=== PATIENT | male | born 1965 | race Caucasian/White ===

== ENCOUNTER 2017-07-28 11:01 | Emergency (ER) | payer BC ==
[2017-07-28] MEDS ORDERED: OXYCODONE-ACETAMINOPHEN 5-325 MG TABLET PO ONE (12:27)
--- NOTE | 2017-07-28 12:33 | RADIOLOGY REPORT (SQ) ---
EXAM DESCRIPTION: SHOULDER RIGHT 2 OR MORE VIEWS COMPLETED DATE/TIME: 07/28/2017 12:19 pm REASON FOR STUDY: injury COMPARISON: None. NUMBER OF VIEWS: Three views right shoulder. LIMITATIONS: None. FINDINGS: Nondisplaced fracture through the lateral humeral head. Potential extension into the kinsey carline neck. No dislocation or separation evident. Degenerative AC joint changes. No pneumothorax or displaced rib fracture. OTHER: No other significant finding. IMPRESSION: Nondisplaced proximal humerus fracture. TECHNICAL DOCUMENTATION: JOB ID: [id number] Reading location - IP/workstation name: [email or web address]
--- NOTE | 2017-07-28 12:56 | ER Document Report ---
ED General - General Chief Complaint: Shoulder Injury Stated Complaint: FALL/RIGHT SHOULDER PAIN Time Seen by Provider: 07/28/17 11:19 Mode of Arrival: Ambulatory Information source: Patient Notes: 51-year-old male chronic alcoholic presents after mechanical fall while intoxicated last night. Patient notes it has been difficult to move his shoulder, he does know to previous clavicular injuries. Patient denies any numbness or weakness, denies any other injuries TRAVEL OUTSIDE OF THE [place] IN LAST 30 DAYS: No - HPI Onset: Yesterday Onset/Duration: Sudden Quality of pain: Sharp Severity: Moderate Pain Level: 2 Associated symptoms: Body/muscle aches Exacerbated by: Movement Relieved by: Denies Similar symptoms previously: No Recently seen / treated by doctor: No - Related Data Allergies/Adverse Reactions: No Known Allergies Allergy (Verified 07/28/17 11:03) Past Medical History - Social History Smoking Status: Current Every Day Smoker Cigarette use (# per day): Yes Chew tobacco use (# tins/day): No Smoking Education Provided: No Frequency of alcohol use: Heavy Drug Abuse: Marijuana Family History: Reviewed & Not Pertinent Patient has suicidal ideation: No Patient has homicidal ideation: No - Past Medical History Cardiac Medical History: Reports: Hx Hypertension Pulmonary Medical History: Reports: Hx COPD Renal/ Medical History: Denies: Hx Peritoneal Dialysis Past Surgical History: Reports: Hx Orthopedic Surgery - r clavicle x2, left clavicle x1 Review of Systems - Review of Systems Notes: REVIEW OF SYSTEMS: CONSTITUTIONAL : Denies fever, chills, or sweats. Denies recent illness. EENT: Denies eye, ear, throat, or mouth pain or symptoms. Denies nasal or sinus congestion or discharge. Denies throat, tongue, or mouth swelling or difficulty swallowing. CARDIOVASCULAR: Denies chest pain. Denies palpitations or racing or irregular heart beat. Denies ankle edema. RESPIRATORY: Denies cough, cold, or chest congestion. Denies shortness of breath, difficulty breathing, or wheezing. GASTROINTESTINAL: Denies abdominal pain or distention. Denies nausea, vomiting , or diarrhea. Denies blood in vomitus, stools, or per rectum. Denies black, tarry stools. Denies constipation. GENITOURINARY: Denies difficulty urinating, painful urination, burning, frequency, blood in urine, or discharge. MUSCULOSKELETAL: Right shoulder pain SKIN: Denies rash, lesions or sores. HEMATOLOGIC : Denies easy bruising or bleeding. LYMPHATIC: Denies swollen, enlarged glands. NEUROLOGICAL: Denies confusion or altered mental status. Denies passing out or loss of consciousness. Denies dizziness or lightheadedness. Denies headache. Denies weakness or paralysis or loss of use of either side. Denies problems with gait or speech. Denies sensory loss, numbness, or tingling. Denies seizures. PSYCHIATRIC: Denies anxiety or stress. Denies depression, suicidal ideation, or homicidal ideation. ALL OTHER SYSTEMS REVIEWED AND NEGATIVE. Dictation was performed using [employer] voice recognition software PHYSICAL EXAMINATION: GENERAL: Well-appearing, well-nourished and in no acute distress. HEAD: Atraumatic, normocephalic. EYES: Pupils equal round and reactive to light, extraocular movements intact, sclera anicteric, conjunctiva are normal. ENT: Nares patent, oropharynx clear without exudates. Moist mucous membranes. NECK: Normal range of motion, supple without lymphadenopathy LUNGS: Breath sounds clear to auscultation bilaterally and equal. No wheezes rales or rhonchi. HEART: Regular rate and rhythm without murmurs ABDOMEN: Soft, nontender, nondistended abdomen. No guarding, no rebound. No masses appreciated. Musculoskeletal: Tenderness with range of motion of the right shoulder, he is in a makeshift sling currently NEUROLOGICAL: Cranial nerves grossly intact. Normal speech, normal gait. Normal sensory, motor exams PSYCH: Normal mood, normal affect. SKIN: Warm, Dry, normal turgor, no rashes or lesions noted. Physical Exam - Vital signs Vitals: Temp Pulse Resp BP Pulse Ox 98.0 F 99 22 H 141/82 H 93 07/28/17 11:06 07/28/17 11:06 07/28/17 11:06 07/28/17 11:06 07/28/17 11:06 Course - Re-evaluation Re-evalutation: 07/28/17 13:08 Patient noted to have proximal humeral fracture, he was given pain control shoulder immobilizer was ordered. This was placed by tech with no difficulty. Patient will be given follow-up with orthopedics, upon discharge notes he has a history of COPD and is running out of his inhaler I will refill this as well 06/10/18 15:59 After performing a Medical Screening Examination, I estimate there is LOW risk for INTRACRANIAL HEMORRHAGE, UNSTABLE SPINE FRACTURE, CENTRAL CORD SYNDROME, CAUDA EQUINA, THORACIC AORTIC DISSECTION, PNEUMOTHORAX, PERFORATED BOWEL, RUPTURED ABDOMINAL AORTIC ANEURYSM, ACUTE TENDON RUPTURE, COMPARTMENT SYNDROME, or OPEN FRACTURE, thus I consider the discharge disposition reasonable. Also, there is no evidence or peritonitis, sepsis, or toxicity. I have reevaluated this patient multiple times and no significant life threatening changes are noted. The patient and I have discussed the diagnosis and risks, and we agree with discharging home to follow-up with their primary doctor with the understanding that symptoms and presentations can change. We also discussed returning to the Emergency Department immediately if new or worsening symptoms occur. We have discussed the symptoms which are most concerning (e.g., bloody stool, fever, changing or worsening pain, vomiting) that necessitate immediate return. - Vital Signs Vital signs: Temp Pulse Resp BP Pulse Ox 98.2 F 85 20 147/89 H 94 07/28/17 13:15 07/28/17 13:15 07/28/17 13:15 07/28/17 13:15 07/28/17 13:15 - Diagnostic Test Radiology reviewed: Image reviewed - X-rays right shoulder 3 view consistent with a proximal humeral fracture, Reports reviewed Discharge - Discharge Clinical Impression: Humeral fracture Qualifiers: Encounter type: initial encounter Humerus Location: proximal Fracture morphology: other fracture Fracture alignment: nondisplaced Laterality: right Qualified Code(s): S42.294A - Other nondisplaced fracture of upper end of right humerus, initial encounter for closed fracture Condition: Stable Disposition: HOME, SELF-CARE Instructions: Fracture Proximal Humerus, Sling as Treatment ([facility]) Additional Instructions: Please allow for light duty or a position where he would not be required to use his right upper extremity for 6-8 weeks Prescriptions: Albuterol Sulfate [Proair HFA Inhalation Aerosol 8.5 gm MDI] 2 puff IH Q4H PRN # 1 mdi PRN Reason: Oxycodone HCl/Acetaminophen [Percocet 5-325 mg Tablet] 1 - 2 tab PO Q4H PRN #25 tablet PRN Reason: Referrals: CARLOS PRIETO DO [ACTIVE STAFF] - Follow up tomorrow
[2017-07-28 13:22] VITALS: BP 147/89
== END 2017-07-28 13:18 | disposition home or self-care (01) ==
LOC: ER 11:01
DX: S42.201A Unspecified fracture of upper end of right humerus, initial encounter for closed fracture (principal); M25.511 Pain in right shoulder; W19.XXXA Unspecified fall, initial encounter; F10.20 Alcohol dependence, uncomplicated; F17.210 Nicotine dependence, cigarettes, uncomplicated; I10 Essential (primary) hypertension; J44.9 Chronic obstructive pulmonary disease, unspecified
CPT/HCPCS: 99283; 73030; L3650; L3908

== ENCOUNTER 2018-02-12 04:23 | Inpatient (IN) | payer BC ==
[2018-02-12] MEDS ORDERED: MAGNESIUM SULFATE/D5W 1 GM/100 ML RTUPB IV ONE (04:44)
[2018-02-12 04:45] LABS: ABSOLUTE BASOPHILS # (AUTO) 0.1 10^3/uL (0.0-0.2); ABSOLUTE LYMPHOCYTES (AUTO) 1.4 10^3/uL (0.5-4.7); ABSOLUTE MONOCYTES (AUTO) 2.6 10^3/uL (0.1-1.4); ABSOLUTE NEUT (AUTO) 11.6 10^3/uL (1.7-8.2); BASOPHILS % (AUTO) 0.4 % (0-2); HEMATOCRIT 41.5 % (37.9-51.0); HEMOGLOBIN 14.6 g/dL (13.5-17.0); LYMPHOCYTES % (AUTO) 8.8 % (13-45); MEAN CORPUSCULAR HEMOGLOBIN 32.6 pg (27.0-33.4); MEAN CORPUSCULAR HGB CONC 35.1 g/dL (32.0-36.0); MEAN CORPUSCULAR VOLUME 93 fl (80-97); MONOCYTES % (AUTO) 16.5 % (3-13); PLATELET COUNT 193 10^3/uL (150-450); RED BLOOD COUNT 4.47 10^6/uL (4.35-5.55); RED CELL DISTRIBUTION WIDTH 12.7 % (11.5-14.0); SEGMENTED NEUTROPHILS % (AUTO) 74.3 % (42-78); TOTAL CELLS COUNTED % (AUTO) 100 %; WHITE BLOOD COUNT 15.6 10^3/uL (4.0-10.5)
[2018-02-12] MEDS ORDERED: IPRATROPIUM/ALBUTEROL 0.5-2.5 MG/3 ML AMPUL NEB ONE (04:45)
[2018-02-12] MEDS ORDERED: BUDESONIDE NEB 0.5 MG/2 ML AMPUL NEB ONE (04:45)
[2018-02-12 04:59] LABS: ALANINE AMINOTRANSFERASE 40 U/L (21-72); ALBUMIN 4.3 g/dL (3.5-5.0); ALKALINE PHOSPHATASE 95 U/L (38-126); ANION GAP 15 (5-19); ASPARTATE AMINO TRANSFERASE 56 U/L (17-59); BILIRUBIN,DIRECT 0.4 mg/dL (0.0-0.4); BILIRUBIN,TOTAL 0.7 mg/dL (0.2-1.3); BLOOD UREA NITROGEN 8 mg/dL (7-20); CALCIUM 9.4 mg/dL (8.4-10.2); CARBON DIOXIDE 24 mmol/L (22-30); CHLORIDE 88 mmol/L (98-107); GLUCOSE 114 mg/dL (75-110); POTASSIUM 4.3 mmol/L (3.6-5.0); SODIUM 126.6 mmol/L (137-145); TOTAL PROTEIN 7.7 g/dL (6.3-8.2)
[2018-02-12] MEDS ORDERED: AZITHROMYCIN INJ 500 MG VIAL IV ONE (05:06)
[2018-02-12] MEDS ORDERED: CEFTRIAXONE INJ 1000 MG VIAL IV ONE (05:06)
[2018-02-12 05:08] LABS: NT PRO BNP 35 pg/mL (5-900)
--- NOTE | 2018-02-12 05:10 | RADIOLOGY REPORT (SQ) ---
EXAM DESCRIPTION: XR CHEST 1 VIEW COMPLETED DATE/TME: 02/12/2018 04:30 CLINICAL HISTORY: 52 years, Male, hypoxia, short of breath COMPARISON: None. NUMBER OF VIEWS: 1 TECHNIQUE: Portable chest LIMITATIONS: None. FINDINGS: The heart size is normal. Osteopenia. Underlying COPD. No pneumothorax. Subsegmental atelectasis/scarring in the lung bases bilaterally. IMPRESSION: COPD. No acute cardiopulmonary process copyright 2010 [employer] All Rights Reserved
[2018-02-12 05:13] LABS: TROPONIN I < 0.012 ng/mL
[2018-02-12 05:41] LABS: ARTERIAL BLOOD BASE EXCESS -1.1 mmol/L; ARTERIAL BLOOD FIO2 36; ARTERIAL BLOOD H2CO3 1.17 mmol/L (1.05-1.35); ARTERIAL BLOOD HCO3 23.5 mmol/L (20-24); ARTERIAL BLOOD O2 SATURATION 81.2 % (94-98); ARTERIAL BLOOD PO2 45.2 mmHg (80-100); ARTERIAL BLOOD TOTAL CO2 24.7 mmol/L (23-27)
--- NOTE | 2018-02-12 05:55 | ER Document Report ---
ED General - General TRAVEL OUTSIDE OF THE [place] IN LAST 30 DAYS: No <JACKIE ODDD - Last Filed: 02/12/18 07:11> <RON,JAQUELINADELFO - Last Filed: 02/12/18 07:58> - General Chief Complaint: Shortness Of Breath Stated Complaint: DIFFICULTY BREATHING Time Seen by Provider: 02/12/18 04:30 Notes: Patient is a 52-year-old male with COPD that presents to the emergency department for chief complaint of difficulty breathing. Patient states of the last 4 days has had progressively worsening shortness of breath and cough, he does have COPD, has been using his Spiriva inhaler and albuterol inhaler without improvement of his symptoms so he decided to call EMS to bring him to the emerge ncy department. He denies any any fevers, chills, chest pain, associated with this shortness of breath. He states his cough has been productive, with a white sputum. He denies any nausea, vomiting, abdominal pain, dysuria or hematuria. He does not wear oxygen at home, and is not recently on steroids. Past Medical History: COPD, hypertension Past Surgical History: Eye surgery Social History: Admits to smoking cigarettes daily, and admits to daily alcohol use, denies illicit drug use. Family History: Reviewed and noncontributory for presenting illness Allergies: Reviewed, see documented allergy list. REVIEW OF SYSTEMS: Other than noted above, the 12 point review of systems was reviewed with the patient and were negative, all pertinent findings are included in the HPI. PHYSICAL EXAMINATION: Vital signs reviewed, nursing noted reviewed. GENERAL: Patient in severe respiratory distress, tripoding, increased work of breathing, using accessory muscles HEAD: Atraumatic, normocephalic. EYES: Eyes appear normal, extraocular movements intact, sclera anicteric, conjunctiva are normal. ENT: nares patent, oropharynx clear without exudates. Moist mucous membranes. NECK: Normal range of motion, supple without lymphadenopathy LUNGS: Patient in acute respiratory distress, coarse lung sounds, rhonchi and wheezing noted throughout all lung canas HEART: Tachycardic, regular rhythm ABDOMEN: Soft, nontender, normoactive bowel sounds. No rebound, guarding, or rigidity. No masses appreciated. EXTREMITIES: Nontender, good range of motion, no pitting or edema. NEUROLOGICAL: No focal neurological deficits. Moves all extremities spontaneously Motor and sensory grossly intact on exam. PSYCH: Patient is anxious, appears distressed SKIN: Warm, Dry, normal turgor, no rashes or lesions noted on exposed skin (JACKIE DODD) - Related Data Allergies/Adverse Reactions: No Known Allergies Allergy (Verified 07/28/17 11:03) Past Medical History - Social History Smoking Status: Current Every Day Smoker Family History: Reviewed & Not Pertinent - Past Medical History Cardiac Medical History: Reports: Hx Hypertension Pulmonary Medical History: Reports: Hx COPD Renal/ Medical History: Denies: Hx Peritoneal Dialysis Past Surgical History: Reports: Hx Orthopedic Surgery - r clavicle x2, left clavicle x1 <JACKIE DODD - Last Filed: 02/12/18 07:11> - Vital signs Vitals: Pulse Ox 99 02/12/18 04:30 Course - Laboratory Result Diagrams: 02/12/18 04:31 02/12/18 04:31 <JACKIE DODD - Last Filed: 02/12/18 07:11> - Laboratory Result Diagrams: 02/12/18 04:31 02/12/18 04:31 - Diagnostic Test Radiology reviewed: Reports reviewed <FAUSTINO VELASQUEZ - Last Filed: 02/12/18 07:58> - Re-evaluation Re-evalutation: Patient seen and examined vital signs reviewed. Laboratory data and imaging were ordered as appropriate for the patient's presenting symptoms and complaint, with consideration of any critical or life threatening conditions that may be associated with their obtained history and exam as noted above. Patient was treated with IV Solu-Medrol by EMS, and given 2 DuoNeb breathing treatments, this was followed up with budesonide breathing treatment, IV magnesium, and additional DuoNeb breathing treatment, I did attempt to place the patient on BiPAP, however he refused stating that he is claustrophobic, patient was maintained on nasal cannula, ABG was obtained, did demonstrate severe hypoxemia, in the 40s, and I could not convince the patient to be on BiPAP. Will maintain on oxygen. Results were reviewed when available and demonstrated severe hypoxemia on ABG, leukocytosis, likely acute phase stress reaction, chest x-ray is negative for focal infiltrate, he does have hyponatremia as well, suspect this is secondary to the patient's chronic alcohol use. The patient was re-evaluated and was improved after treatments, still having some increased work of breathing, I do feel that this patient should be admitted to the hospital, for aggressive pulmonary toilet, and IV steroids, to improve his acute exacerbation of COPD with hypoxemia, and acute on chronic respiratory failure. Results were discussed with the patient at this point after careful consideration I feel that that patient should be admitted to the hospital. This was discussed with the patient that it is in the best interest for their care to be admitted for further evaluation and management. Patient agreed with this plan of care. A call was placed to the admitted physician, Dr. Tolliver who graciously accepted the patient onto their service. *Note is created using voice recognition software and may contain spelling, syntax or grammatical errors. Laboratory 02/12/18 02/12/18 02/12/18 04:31 04:31 04:31 WBC 15.6 H RBC 4.47 Hgb 14.6 Hct 41.5 MCV 93 MCH 32.6 MCHC 35.1 RDW 12.7 Plt Count 193 Seg Neutrophils % 74.3 Lymphocytes % 8.8 L Monocytes % 16.5 H Eosinophils % 0.0 Basophils % 0.4 Absolute Neutrophils 11.6 H Absolute Lymphocytes 1.4 Absolute Monocytes 2.6 H Absolute Eosinophils 0.0 Absolute Basophils 0.1 Carbonic Acid HCO3/H2CO3 Ratio ABG pH ABG pCO2 ABG pO2 ABG HCO3 ABG Total CO2 ABG O2 Saturation ABG Base Excess FiO2 Sodium 126.6 L Potassium 4.3 Chloride 88 L Carbon Dioxide 24 Anion Gap 15 BUN 8 Creatinine 0.64 Est GFR ( Amer) > 60 Est GFR (Non-Af Amer) > 60 Glucose 114 H Calcium 9.4 Total Bilirubin 0.7 Direct Bilirubin 0.4 Neonat Total Bilirubin Not Reportable Neonat Direct Bilirubin Not Reportable Neonat Indirect Bili Not Reportable AST 56 ALT 40 Alkaline Phosphatase 95 Troponin I < 0.012 NT-Pro-B Natriuret Pep 35 Total Protein 7.7 Albumin 4.3 02/12/18 05:10 WBC RBC Hgb Hct MCV MCH MCHC RDW Plt Count Seg Neutrophils % Lymphocytes % Monocytes % Eosinophils % Basophils % Absolute Neutrophils Absolute Lymphocytes Absolute Monocytes Absolute Eosinophils Absolute Basophils Carbonic Acid 1.17 HCO3/H2CO3 Ratio 20:1 ABG pH 7.40 ABG pCO2 39.0 ABG pO2 45.2 L ABG HCO3 23.5 ABG Total CO2 24.7 ABG O2 Saturation 81.2 L ABG Base Excess -1.1 FiO2 36 Sodium Potassium Chloride Carbon Dioxide Anion Gap BUN Creatinine Est GFR ( Amer) Est GFR (Non-Af Amer) Glucose Calcium Total Bilirubin Direct Bilirubin Neonat Total Bilirubin Neonat Direct Bilirubin Neonat Indirect Bili AST ALT Alkaline Phosphatase Troponin I NT-Pro-B Natriuret Pep Total Protein Albumin Chest X-Ray 02/12/18 04:30 IMPRESSION: COPD. No acute cardiopulmonary process copyright 2011 [employer]- All Rights Reserved (JACKIE DODD Clarisse) 02/12/18 07:[address] Michael regarding patient presentation, agrees to accept patient as an IMCU admission (FAUSTINO VELASQUEZ) - Vital Signs Vital signs: Temp Pulse Resp BP Pulse Ox 99.6 F 31 H 174/93 H 94 02/12/18 04:36 02/12/18 07:01 02/12/18 07:01 02/12/18 07:01 - Laboratory Laboratory results interpreted by me: 02/12/18 02/12/18 02/12/18 04:31 04:31 05:10 WBC 15.6 H Lymphocytes % 8.8 L Monocytes % 16.5 H Absolute Neutrophils 11.6 H Absolute Monocytes 2.6 H ABG pO2 45.2 L ABG O2 Saturation 81.2 L Sodium 126.6 L Chloride 88 L Glucose 114 H 02/12/18 07:58 Labs- Entire Visit 02/12/18 02/12/18 02/12/18 04:31 04:31 04:31 WBC 15.6 H RBC 4.47 Hgb 14.6 Hct 41.5 MCV 93 MCH 32.6 MCHC 35.1 RDW 12.7 Plt Count 193 Seg Neutrophils % 74.3 Lymphocytes % 8.8 L Monocytes % 16.5 H Eosinophils % 0.0 Basophils % 0.4 Absolute Neutrophils 11.6 H Absolute Lymphocytes 1.4 Absolute Monocytes 2.6 H Absolute Eosinophils 0.0 Absolute Basophils 0.1 Carbonic Acid HCO3/H2CO3 Ratio ABG pH ABG pCO2 ABG pO2 ABG HCO3 ABG Total CO2 ABG O2 Saturation ABG Base Excess FiO2 Sodium 126.6 L Potassium 4.3 Chloride 88 L Carbon Dioxide 24 Anion Gap 15 BUN 8 Creatinine 0.64 Est GFR ( Amer) > 60 Est GFR (Non-Af Amer) > 60 Glucose 114 H Calcium 9.4 Total Bilirubin 0.7 Direct Bilirubin 0.4 Neonat Total Bilirubin Not Reportable Neonat Direct Bilirubin Not Reportable Neonat Indirect Bili Not Reportable AST 56 ALT 40 Alkaline Phosphatase 95 Troponin I < 0.012 NT-Pro-B Natriuret Pep 35 Total Protein 7.7 Albumin 4.3 02/12/18 05:10 WBC RBC Hgb Hct MCV MCH MCHC RDW Plt Count Seg Neutrophils % Lymphocytes % Monocytes % Eosinophils % Basophils % Absolute Neutrophils Absolute Lymphocytes Absolute Monocytes Absolute Eosinophils Absolute Basophils Carbonic Acid 1.17 HCO3/H2CO3 Ratio 20:1 ABG pH 7.40 ABG pCO2 39.0 ABG pO2 45.2 L ABG HCO3 23.5 ABG Total CO2 24.7 ABG O2 Saturation 81.2 L ABG Base Excess -1.1 FiO2 36 Sodium Potassium Chloride Carbon Dioxide Anion Gap BUN Creatinine Est GFR ( Amer) Est GFR (Non-Af Amer) Glucose Calcium Total Bilirubin Direct Bilirubin Neonat Total Bilirubin Neonat Direct Bilirubin Neonat Indirect Bili AST ALT Alkaline Phosphatase Troponin I NT-Pro-B Natriuret Pep Total Protein Albumin (FAUSTINO VELASQUEZ) - EKG Interpretation by Me Additional EKG results interpreted by me: EKG demonstrates sinus tachycardia with a ventricular rate of 115 bpm, normal axis, normal intervals, no evidence of acute ischemia on this EKG. No prior for comparison. (JACKIE DODD) Discharge <JACKIE DODD - Last Filed: 02/12/18 07:11> - Discharge Admitting Provider: Noel Unit Admitted: IMCU <FAUSTINO VELASQUEZ - Last Filed: 02/12/18 07:58> - Discharge Clinical Impression: COPD exacerbation Acute and chronic respiratory failure Qualifiers: Respiratory failure complication: hypoxia Qualified Code(s): J96.21 - Acute and chronic respiratory failure with hypoxia Condition: Stable Disposition: ADMITTED INPATIENT Referrals: SANTIAGO MICHAEL MD [Primary Care Provider] - Follow up as needed
[2018-02-12] MEDS ORDERED: ONDANSETRON 4 MG TAB.RAPDIS PO PRN (09:14)
[2018-02-12] MEDS ORDERED: ACETAMINOPHEN 325 MG TABLET PO PRN (09:14)
[2018-02-12] MEDS: DOCUSATE SODIUM 100 MG CAPSULE PO SCH (09:49)
[2018-02-12] MEDS: GUAIFENESIN 600 MG TABLET.SA PO SCH ×2 (09:50→21:13)
[2018-02-12] MEDS: LEVOFLOXACIN 500 MG/D5W RTU 500 MG/100 ML RTUPB IV SCH (09:52)
[2018-02-12] MEDS: METHYLPREDNISOLONE INJ 125 MG/2 ML SDV IV SCH ×2 (09:53→17:09)
[2018-02-12] MEDS: ENOXAPARIN SODIUM INJ 40 MG/0.4 ML DISP.SYRIN SUBCUT SCH (09:53)
[2018-02-12] MEDS ORDERED: LISINOPRIL 10 MG TABLET PO SCH (10:00)
[2018-02-12 10:59] LABS: A TYPE INFLUENZA AG NEGATIVE (NEGATIVE); B INFLUENZA AG NEGATIVE (NEGATIVE)
[2018-02-12] MEDS: IPRATROPIUM/ALBUTEROL 0.5-2.5 MG/3 ML AMPUL NEB SCH ×3 (12:19→21:44)
[2018-02-12] MEDS: NORMAL SALINE 1000 ML 1,000 ML IV PRN (13:11)
--- NOTE | 2018-02-12 13:16 | EKG REPORT ---
SEVERITY:- OTHERWISE NORMAL ECG - SINUS TACHYCARDIA : Confirmed by: Corry Olivarez 12-Feb-2018 13:15:21
--- NOTE | 2018-02-12 16:34 | PDOC H&P ---
History of Present Illness Admission Date/PCP: 02/12/18 07:58 SANTIAGO MICHAEL MD Patient complains of: Progressive shortness of breath, cough whitish phlegm chest congestion. History of Present Illness: MARIAA OH is a 52 year old male Who presents 4-5-day history of progressive shortness of breath cough whitish yellowish phlegm chills dyspnea on exertion denied fever chills some nasal congestion also some nausea after coughing bouts. He took no medicine at home but eventually felt so bad that he came to the emergency room. Past Medical History Cardiac Medical History: Reports: Hypertension Pulmonary Medical History: Reports: Chronic Obstructive Pulmonary Disease (COPD) Past Surgical History Past Surgical History: Reports: Orthopedic Surgery - r clavicle x2, left clavicle x1 Social History Smoking Status: Current Every Day Smoker Cigarettes Packs Per Day: 1 Frequency of Alcohol Use: Heavy Last Alcohol Use: 02/11/18 Hx Recreational Drug Use: Yes Drugs: Marijuana Hx Prescription Drug Abuse: No - Advance Directive Resuscitation Status: Full Code Family History Family History: Reviewed & Not Pertinent Parental Family History Reviewed: Yes Children Family History Reviewed: Yes Sibling(s) Family History Reviewed.: Yes Medication/Allergy Home Medications: Albuterol Sulfate [Proair HFA Inhalation Aerosol 8.5 gm MDI] 1 puff IH Q6HP PRN 02/12/18 Lisinopril [Prinivil 10 mg Tablet] 10 mg PO DAILY 02/12/18 Tiotropium [place] [Spiriva Handihaler 5 Cap/Kit (18 Mcg/Cap)] 1 puff IH DAILY 02/12/18 Allergies/Adverse Reactions: No Known Allergies Allergy (Verified 07/28/17 11:03) Review of Systems All systems: as per PMH Constitutional: PRESENT: as per HPI Eyes: PRESENT: as per HPI Ears: PRESENT: as per HPI Nose, Mouth, and Throat: PRESENT: as per HPI Breasts: PRESENT: as per HPI Cardiovascular: PRESENT: as per HPI Respiratory: PRESENT: as per HPI Gastrointestinal: PRESENT: as per HPI Physical Exam Vital Signs: Temp Pulse Resp BP Pulse Ox 99.1 F 90 24 H 167/97 H 96 02/12/18 08:01 02/12/18 14:00 02/12/18 12:40 02/12/18 12:01 02/12/18 12:40 Intake & Output 02/11/18 02/12/18 02/13/18 06:59 06:59 06:59 Intake Total 100 100 Output Total 380 Balance 100 -280 Weight 77.6 kg General appearance: PRESENT: mild distress Head exam: PRESENT: atraumatic, normocephalic Eye exam: PRESENT: conjunctiva pink, EOMI, PERRLA. ABSENT: scleral icterus Additional comments: Fundus shows opacification Ear exam: PRESENT: normal external ear exam Mouth exam: PRESENT: moist, tongue midline Teeth exam: PRESENT: poor dentation Throat exam: PRESENT: post pharyngeal erythema Neck exam: PRESENT: full ROM. ABSENT: carotid bruit, JVD, lymphadenopathy, thyromegaly Respiratory exam: PRESENT: prolonged expiratory phas, wheezes Cardiovascular exam: PRESENT: tachycardia Pulses: PRESENT: normal dorsalis pedis pul, +2 pedal pulses bilateral Rectal exam: PRESENT: deferred Extremities exam: PRESENT: full ROM Musculoskeletal exam: PRESENT: ambulatory Neurological exam: PRESENT: alert, awake, oriented to person, oriented to place, oriented to time, oriented to situation, CN II-XII grossly intact. ABSENT: motor sensory deficit Psychiatric exam: PRESENT: appropriate affect, normal mood. ABSENT: homicidal ideation, suicidal ideation Skin exam: PRESENT: dry, intact, warm. ABSENT: cyanosis, rash Results Laboratory Results: 02/12/18 04:31 02/12/18 04:31 02/12/18 02/12/18 02/12/18 04:31 04:31 05:10 WBC 15.6 H RBC 4.47 Hgb 14.6 Hct 41.5 MCV 93 MCH 32.6 MCHC 35.1 RDW 12.7 Plt Count 193 Seg Neutrophils % 74.3 Lymphocytes % 8.8 L Monocytes % 16.5 H Eosinophils % 0.0 Basophils % 0.4 Absolute Neutrophils 11.6 H Absolute Lymphocytes 1.4 Absolute Monocytes 2.6 H Absolute Eosinophils 0.0 Absolute Basophils 0.1 Carbonic Acid 1.17 HCO3/H2CO3 Ratio 20:1 ABG pH 7.40 ABG pCO2 39.0 ABG pO2 45.2 L ABG HCO3 23.5 ABG O2 Saturation 81.2 L ABG Base Excess -1.1 FiO2 36 Sodium 126.6 L Potassium 4.3 Chloride 88 L Carbon Dioxide 24 Anion Gap 15 BUN 8 Creatinine 0.64 Est GFR ( Amer) > 60 Est GFR (Non-Af Amer) > 60 Glucose 114 H Calcium 9.4 Total Bilirubin 0.7 AST 56 ALT 40 Alkaline Phosphatase 95 Total Protein 7.7 Albumin 4.3 02/12/18 02/12/18 04:31 10:45 Troponin I < 0.012 < 0.012 NT-Pro-B Natriuret Pep 35 Impressions: Chest X-Ray 02/12/18 04:30 IMPRESSION: COPD. No acute cardiopulmonary process copyright 2011 [employer]- All Rights Reserved Assessment & Plan - Diagnosis (1) Acute and chronic respiratory failure Qualifiers: Respiratory failure complication: hypoxia Qualified Code(s): J96.21 - Acute and chronic respiratory failure with hypoxia Is this a current diagnosis for this admission?: Yes Plan: And put him on Solu-Medrol 60 IV every 8 beta-2 agonist [id number] we will put him on Levaquin 500 daily we will put him on Mucinex 600 every 12 (2) COPD exacerbation Is this a current diagnosis for this admission?: Yes (3) Hypertension Qualifiers: Hypertension type: essential hypertension Qualified Code(s): I10 - Essential (primary) hypertension Is this a current diagnosis for this admission?: Yes Plan: Home antihypertensive we will also put on DVT prophylaxis and GI prophylaxis - Time Time Spent: 50 to 70 Minutes Critical Time spent with patient: 15-24 minutes Smoking Cessation Education: 3 to 10 minutes Medications reviewed and adjusted accordingly: Yes Anticipated discharge: Home Within: Other - Inpatient Certification I certify that my determination is in accordance with my understanding of Medicare's requirements for reasonable and necessary INPATIENT services [42 CFR 412.3e].: Yes Medical Necessity: Failure to Improve With Outpatient Therapy, Significant Comorbidiites Make Outpatient Treatment Too Risky, Need for IV Antibiotics Post Hospital Care: D/C Education Spec Documentation
[2018-02-12] MEDS: LANSOPRAZOLE 15 MG TAB.RAP.DR PO SCH (16:55)
[2018-02-12] MEDS: ZOLPIDEM TARTRATE 5 MG TABLET PO SCH (21:13)
[2018-02-13] MEDS: IPRATROPIUM/ALBUTEROL 0.5-2.5 MG/3 ML AMPUL NEB SCH ×6 (00:23→20:26)
[2018-02-13] MEDS: METHYLPREDNISOLONE INJ 125 MG/2 ML SDV IV SCH ×3 (01:26→17:20)
[2018-02-13] MEDS: LANSOPRAZOLE 15 MG TAB.RAP.DR PO SCH ×2 (05:14→17:20)
[2018-02-13] MEDS: NORMAL SALINE 1000 ML 1,000 ML IV PRN (05:14)
[2018-02-13 06:17] LABS: HEMATOCRIT 39.4 % (37.9-51.0); HEMOGLOBIN 13.8 g/dL (13.5-17.0); MEAN CORPUSCULAR HEMOGLOBIN 32.8 pg (27.0-33.4); MEAN CORPUSCULAR HGB CONC 35.1 g/dL (32.0-36.0); MEAN CORPUSCULAR VOLUME 94 fl (80-97); PLATELET COUNT 206 10^3/uL (150-450); RED BLOOD COUNT 4.21 10^6/uL (4.35-5.55); RED CELL DISTRIBUTION WIDTH 12.5 % (11.5-14.0); WHITE BLOOD COUNT 16.3 10^3/uL (4.0-10.5)
[2018-02-13 06:45] LABS: ANION GAP 11 (5-19); BLOOD UREA NITROGEN 13 mg/dL (7-20); CALCIUM 9.1 mg/dL (8.4-10.2); CARBON DIOXIDE 25 mmol/L (22-30); CHLORIDE 94 mmol/L (98-107); GLUCOSE 142 mg/dL (75-110); POTASSIUM 4.9 mmol/L (3.6-5.0); SODIUM 130.3 mmol/L (137-145)
[2018-02-13 06:55] LABS: ABSOLUTE LYMPHOCYTES# (MANUAL) 0.5 10^3/uL (0.5-4.7); ABSOLUTE MONOCYTES # (MANUAL) 1.6 10^3/uL (0.1-1.4); ABSOLUTE NEUTROPHILS# (MANUAL) 14.2 10^3/uL (1.7-8.2); BAND NEUTROPHILS % (MANUAL) 4 % (3-5); BASOPHILS % (MANUAL) 0 % (0-2); EOSINOPHILS % (MANUAL) 0 % (0-6); LYMPHOCYTES % (MANUAL) 3 % (13-45); MONOCYTES % (MANUAL) 10 % (3-13); PLATELET COMMENT ADEQUATE; PLATELET LARGE PRESENT; RBC MORPHOLOGY COMMENT NORMO-CYTIC/CHROMIC; SEGMENTED NEUTROPHILS % (MAN) 83 % (42-78); TOTAL CELLS COUNTED 100; TOXIC GRANULATION SLIGHT
--- NOTE | 2018-02-13 09:10 | PDOC PROGRESS REPORT ---
Subjective Progress Note for:: 02/13/18 Subjective:: Patient states to feeling better today still short of breath still coughing nonproductive less wheezing denies any headaches nausea vomiting was able to keep his food down he slept all night. Denies any nervousness, diaphoresis, palpitations. Reason For Visit: COPD,HYPOMTREMIA,HTN Physical Exam Vital Signs: Temp Pulse Resp BP Pulse Ox 97.6 F 76 20 157/92 H 96 02/13/18 07:33 02/13/18 07:33 02/13/18 07:33 02/13/18 07:33 02/13/18 07:33 Intake & Output 02/12/18 02/13/18 02/14/18 06:59 06:59 06:59 Intake Total 100 1300 Output Total 1530 Balance 100 -230 Weight 77.6 kg 73.7 kg General appearance: PRESENT: no acute distress, well-developed, well-nourished Head exam: PRESENT: atraumatic, normocephalic Eye exam: PRESENT: conjunctiva pink, EOMI, PERRLA. ABSENT: scleral icterus Ear exam: PRESENT: normal external ear exam Mouth exam: PRESENT: moist, tongue midline Teeth exam: PRESENT: poor dentation Throat exam: PRESENT: post pharyngeal erythema Neck exam: PRESENT: full ROM. ABSENT: carotid bruit, JVD, lymphadenopathy, thyromegaly Respiratory exam: PRESENT: crackles, prolonged expiratory phas, wheezes Cardiovascular exam: PRESENT: tachycardia Pulses: PRESENT: normal dorsalis pedis pul, +2 pedal pulses bilateral Vascular exam: PRESENT: normal capillary refill GI/Abdominal exam: PRESENT: normal bowel sounds, soft. ABSENT: distended, guarding, mass, organolmegaly, rebound, tenderness Rectal exam: PRESENT: deferred Extremities exam: PRESENT: full ROM Musculoskeletal exam: PRESENT: ambulatory Neurological exam: PRESENT: alert, awake, oriented to person, oriented to place, oriented to time, oriented to situation, CN II-XII grossly intact. ABSENT: motor sensory deficit Psychiatric exam: PRESENT: appropriate affect, normal mood. ABSENT: homicidal ideation, suicidal ideation Skin exam: PRESENT: dry, intact, warm. ABSENT: cyanosis, rash Results Laboratory Results: 02/13/18 05:27 02/13/18 05:27 02/13/18 02/13/18 05:27 05:27 WBC 16.3 H RBC 4.21 L Hgb 13.8 Hct 39.4 MCV 94 MCH 32.8 MCHC 35.1 RDW 12.5 Plt Count 206 Seg Neutrophils % Not Reportable Lymphocytes % Not Reportable Monocytes % Not Reportable Eosinophils % Not Reportable Basophils % Not Reportable Absolute Neutrophils Not Reportable Absolute Lymphocytes Not Reportable Absolute Monocytes Not Reportable Absolute Eosinophils Not Reportable Absolute Basophils Not Reportable Sodium 130.3 L Potassium 4.9 Chloride 94 L Carbon Dioxide 25 Anion Gap 11 BUN 13 Creatinine 0.61 Est GFR ( Amer) > 60 Est GFR (Non-Af Amer) > 60 Glucose 142 H Calcium 9.1 Magnesium 2.6 H 02/12/18 02/12/18 02/12/18 04:31 10:45 18:47 Troponin I < 0.012 < 0.012 < 0.012 NT-Pro-B Natriuret Pep 35 02/13/18 00:27 Troponin I < 0.012 NT-Pro-B Natriuret Pep Impressions: Chest X-Ray 02/12/18 04:30 IMPRESSION: COPD. No acute cardiopulmonary process copyright 2011 [employer]- All Rights Reserved Assessment & Plan - Diagnosis (1) Acute and chronic respiratory failure Qualifiers: Respiratory failure complication: hypoxia Qualified Code(s): J96.21 - Acute and chronic respiratory failure with hypoxia Is this a current diagnosis for this admission?: Yes Plan: 1 continue DuoNeb nebulizer, Levaquin, we will decrease his Solu-Medrol to 40 IV every 8 increase his Mucinex to 1200 twice daily. (2) COPD exacerbation Is this a current diagnosis for this admission?: Yes Plan: Continue as per problem 1 (3) Hypertension Qualifiers: Hypertension type: essential hypertension Qualified Code(s): I10 - Essential (primary) hypertension Is this a current diagnosis for this admission?: Yes Plan: This is lisinopril to 40 mg daily (4) Hyponatremia Is this a current diagnosis for this admission?: Yes Plan: And you normal saline will get a BMP 7 for the morning. - Time Time Spent with patient: 15-24 minutes Smoking Cessation Education: 3 to 10 minutes Medications reviewed and adjusted accordingly: Yes Anticipated discharge: Home Within: within 24 hours - Inpatient Certification Medical Necessity: Need For IV Fluids, Need for IV Antibiotics Post Hospital Care: D/C Rn Admit Documentation
[2018-02-13] MEDS: ENOXAPARIN SODIUM INJ 40 MG/0.4 ML DISP.SYRIN SUBCUT SCH (09:19)
[2018-02-13] MEDS: LEVOFLOXACIN 500 MG/D5W RTU 500 MG/100 ML RTUPB IV SCH (09:19)
[2018-02-13] MEDS: DOCUSATE SODIUM 100 MG CAPSULE PO SCH (09:19)
[2018-02-13] MEDS: LISINOPRIL 10 MG TABLET PO SCH (10:17)
[2018-02-13] MEDS: GUAIFENESIN 600 MG TABLET.SA PO SCH ×2 (10:18→21:17)
[2018-02-13] MEDS: LORAZEPAM INJ 2 MG/1 ML VIAL IV PRN ×2 (10:26→18:30)
[2018-02-13] MEDS: ZOLPIDEM TARTRATE 5 MG TABLET PO SCH (21:17)
[2018-02-14] MEDS: IPRATROPIUM/ALBUTEROL 0.5-2.5 MG/3 ML AMPUL NEB SCH ×4 (00:48→12:47)
[2018-02-14] MEDS: DIAZEPAM 5 MG TABLET PO SCH ×3 (01:49→09:09)
[2018-02-14] MEDS: NORMAL SALINE 1000 ML 1,000 ML IV PRN (01:50)
[2018-02-14] MEDS: METHYLPREDNISOLONE INJ 40 MG/1 ML SDV IV SCH ×2 (01:50→09:12)
[2018-02-14] MEDS ORDERED: DIAZEPAM INJ 10 MG/2 ML DISP.SYRIN IV PRN (01:59)
[2018-02-14] MEDS ORDERED: ALBUTEROL SULFATE HFA (90 MCG/PUFF) 200 PUFF/8.5 GM MDI IH PRN (02:02)
[2018-02-14] MEDS ORDERED: ATENOLOL 50 MG TABLET PO ONE (02:15)
[2018-02-14] MEDS: LANSOPRAZOLE 15 MG TAB.RAP.DR PO SCH (05:50)
[2018-02-14 06:13] LABS: ANION GAP 7 (5-19); BLOOD UREA NITROGEN 16 mg/dL (7-20); CARBON DIOXIDE 26 mmol/L (22-30); CHLORIDE 96 mmol/L (98-107); GLUCOSE 124 mg/dL (75-110); POTASSIUM 4.8 mmol/L (3.6-5.0); SODIUM 129.4 mmol/L (137-145)
[2018-02-14] MEDS ORDERED: METOPROLOL TARTRATE 25 MG TABLET ONE (09:05)
[2018-02-14] MEDS: LISINOPRIL 10 MG TABLET PO SCH (09:09)
[2018-02-14] MEDS: GUAIFENESIN 600 MG TABLET.SA PO SCH (09:09)
[2018-02-14] MEDS: DOCUSATE SODIUM 100 MG CAPSULE PO SCH (09:11)
[2018-02-14] MEDS: LEVOFLOXACIN 500 MG/D5W RTU 500 MG/100 ML RTUPB IV SCH (09:11)
[2018-02-14] MEDS: ENOXAPARIN SODIUM INJ 40 MG/0.4 ML DISP.SYRIN SUBCUT SCH (09:11)
[2018-02-14] MEDS ORDERED: LORAZEPAM 1 MG TABLET PO SCH ×2 (09:45→12:00)
[2018-02-14] MEDS ORDERED: PREDNISONE 20 MG TABLET PO SCH (10:00)
[2018-02-14] MEDS ORDERED: METOPROLOL TARTRATE 25 MG TABLET PO SCH (10:00)
[2018-02-14] MEDS ORDERED: TIOTROPIUM BROMIDE DPI 5 CAP/KIT (18 MCG/CAP) IH SCH (10:00)
[2018-02-14] MEDS ORDERED: ATENOLOL 50 MG TABLET PO SCH (10:00)
[2018-02-14 11:25] VITALS: BP 140/86
--- NOTE | 2018-02-17 09:11 | PDOC DISCHARGE SUMMARY ---
General - Admit/Disc Date/PCP Admission Date/Primary Care Provider: 02/12/18 07:58 SANTIAGO MICHAEL MD Discharge Date: 02/14/18 - Discharge Diagnosis (1) Acute and chronic respiratory failure Is this a current diagnosis for this admission?: Yes (2) COPD exacerbation Is this a current diagnosis for this admission?: Yes (3) Hypertension Is this a current diagnosis for this admission?: Yes (4) Hyponatremia Is this a current diagnosis for this admission?: Yes - Additional Information Resuscitation Status: Full Code Discharge Diet: Cardiac Discharge Activity: Activity As Tolerated Prescriptions: Atenolol [Tenormin 50 mg Tablet] 100 mg PO DAILY #30 tablet Lisinopril [Prinivil 10 mg Tablet] 40 mg PO DAILY #30 tablet Lorazepam [Ativan 1 mg Tablet] 2 mg PO Q6 #14 tablet Prednisone [Deltasone 20 mg Tablet] 40 mg PO DAILY #10 tablet Home Medications: Albuterol Sulfate [Proair HFA Inhalation Aerosol 8.5 gm MDI] 1 puff IH Q6HP PRN 02/12/18 Acetaminophen [Tylenol 325 mg Tablet] 650 mg PO Q4HP PRN tablet 02/14/18 Atenolol [Tenormin 50 mg Tablet] 100 mg PO DAILY #30 tablet 02/14/18 Lisinopril [Prinivil 10 mg Tablet] 40 mg PO DAILY #30 tablet 02/14/18 Lorazepam [Ativan 1 mg Tablet] 2 mg PO Q6 #14 tablet 02/14/18 Prednisone [Deltasone 20 mg Tablet] 40 mg PO DAILY #10 tablet 02/14/18 History of Present Illness History of Present Illness: Patient presents with 4-5-day history of progressive shortness of breath cough, wheezing, weakness nausea and anorexia. Hospital Course Hospital Course: Patient initially presented with hypoxia mild hypercapnia he was admitted broad- spectrum antibiotics were placed he was given IV steroids [id number] beta- 2 agonists, supplemental oxygen. With regards to his chronic obstructive lung disease patient showed improvement less shortness of breath O2 saturation prior to discharge on room air was 96-98%, cough and decrease no further wheezing his steroids were weaned from IV to p.o. He was able to walk halls without any difficulty. #2 hypertension initially was admitted with high blood pressure his medications were adjusted his lisinopril was increased from 10-40 mg a day he was also started on low-dose beta-allen because of the fact that on day 2-3 he experience increased tremulousness anxiety some agitation and was going through mild alcohol withdrawal. He required diazepam IV which was switched to lorazepam and prior to discharge he was evaluated by myself and Mini-Mental showed a 28 out of 30 and he was felt since he was able to eat and not on IV fluids to be treated as an outpatient. #3 hyponatremia came in with 126 prior to discharge it was 129 he was given IV fluids and will be monitored as an outpatient. Physical Exam Vital Signs: Temp Pulse Resp BP Pulse Ox 98.4 F 73 20 140/86 H 95 02/14/18 13:09 02/14/18 13:09 02/14/18 13:09 02/14/18 11:20 02/14/18 13:09 General appearance: PRESENT: no acute distress Head exam: PRESENT: atraumatic, normocephalic Eye exam: PRESENT: conjunctiva pink, EOMI, PERRLA. ABSENT: scleral icterus Ear exam: PRESENT: normal external ear exam Mouth exam: PRESENT: moist, tongue midline Neck exam: PRESENT: full ROM. ABSENT: carotid bruit, JVD, lymphadenopathy, thyromegaly Respiratory exam: PRESENT: decreased breath sounds, prolonged expiratory phas Cardiovascular exam: PRESENT: RRR. ABSENT: diastolic murmur, rubs, systolic murmur Pulses: PRESENT: normal dorsalis pedis pul, +2 pedal pulses bilateral Vascular exam: PRESENT: normal capillary refill GI/Abdominal exam: PRESENT: normal bowel sounds, soft. ABSENT: distended, guarding, mass, organolmegaly, rebound, tenderness Rectal exam: PRESENT: deferred Extremities exam: PRESENT: full ROM Musculoskeletal exam: PRESENT: ambulatory Neurological exam: PRESENT: alert, awake, oriented to person, oriented to place, oriented to time, oriented to situation, CN II-XII grossly intact. ABSENT: motor sensory deficit Additional comments: Subtraction/5/7 2 out of 5 for erroneous Psychiatric exam: PRESENT: appropriate affect, normal mood. ABSENT: homicidal ideation, suicidal ideation Skin exam: PRESENT: dry, intact, warm. ABSENT: cyanosis, rash Results Laboratory Results: 02/13/18 05:27 02/14/18 05:00 02/12/18 10:30 Sputum Gram Stain - Final 02/12/18 10:30 Sputum Sputum Culture - Final Corynebacterium Striatum Haemophilus Influenzae Normal Donna 02/12/18 02/12/18 02/12/18 04:31 10:45 18:47 Troponin I < 0.012 < 0.012 < 0.012 NT-Pro-B Natriuret Pep 35 02/13/18 00:27 Troponin I < 0.012 NT-Pro-B Natriuret Pep Impressions: Chest X-Ray 02/12/18 04:30 IMPRESSION: COPD. No acute cardiopulmonary process copyright 2010 [employer]- All Rights Reserved Qualifiers - * PATIENT BEING DISCHARGED WITH ANY OF THE FOLLOWING DIAGNOSIS: No Plan Discharge Plan: Derik will be advised to be discharged home on p.o. Levaquin, his metered-dose inhaler, prednisone 40 mg a day, lisinopril 40 mg a day metoprolol 25 twice daily continuation of smoking and alcohol cessation. Was given a prescription for lorazepam 2 mg every 8. Is advised to follow-up in the office on SaturdayFebruary 17 schedule was given by myself. Advise any reoccurrence in shortness of breath chest pain coughing or increasing diet he to return to the hospital. Time Spent: Greater than 30 Minutes
== END 2018-02-14 13:50 | disposition home or self-care (01) | DRG 189 ==
LOC: ER 04:23 → EH 07:58 → 3S 12:39
PROVIDERS: ADMIT Internal Medicine; ATTEND Internal Medicine
PROC: 3E0F7GC Introduction of Other Therapeutic Substance into Respiratory Tract, Via Natural or Artificial Opening (ICD-10-PCS; principal; 2018-02-12)
DX: J96.21 Acute and chronic respiratory failure with hypoxia (principal); J44.1 Chronic obstructive pulmonary disease with (acute) exacerbation; E87.1 Hypo-osmolality and hyponatremia; F10.239 Alcohol dependence with withdrawal, unspecified; I10 Essential (primary) hypertension; R63.0 Anorexia; F17.210 Nicotine dependence, cigarettes, uncomplicated; R00.0 Tachycardia, unspecified; Z53.29 Procedure and treatment not carried out because of patient's decision for other reasons; Z68.25 Body mass index [BMI] 25.0-25.9, adult
CPT/HCPCS: 36415; 71045; 80048; 80053; 82803; 83735; 83880; 84484; 85025; 87040; 87070; 87077; 87205; 87804; 93005; 93010; 94640; 96365; 99285; J1650; J1956; J2060; J2920; J2930; J3475; J3490; J7030; J7512; J7620

== ENCOUNTER 2018-08-12 08:40 | Day surgery (SDC) | payer BC ==
[~2018-08-12 08:40] MED LIST: BUPIVACAINE HCL 0.75% INJ/PF (7.5 MG/1 ML) 10 ML SDV OD PRN; CHONDR SU A NA/HYALUR INTRAOC KIT (SURGICARE) ONE; EPINEPHRINE INJ/PF 1 MG/1 ML AMPULE ONE; KETOROLAC TROMETHAMINE 0.45% 4 DROP/0.4 ML DROPERETTE OD PRN; LIDOCAINE 1% INJ-PF (10 MG/ML) 30 ML SDV ONE; LIDOCAINE 4% INJ/PF (40 MG/ML) 5 ML AMPUL OD PRN
[2018-08-12] MEDS ORDERED: LIDOCAINE 1%/PHENYLEPHRINE 1.5% 1 ML VIAL ONE (09:09)
[2018-08-12] MEDS ORDERED: TRYPAN BLUE 0.06 % OPH SOLN 0.5 ML DISP.SYRIN ONE (09:09)
[2018-08-12] MEDS: TROPICAMIDE 1% OPH SOLN 3 ML OD PRN ×3 (09:34→09:59)
[2018-08-12] MEDS: CYCLOPENTOLATE 0.2%/PHENYLEPHRINE 1% OPH SOLN 2 ML OD PRN ×3 (09:34→09:59)
[2018-08-12] MEDS: BESIFLOXACIN HCL 0.6% OPH SUSP 5 ML BOTTLE OD PRN ×4 (09:35→11:00)
[2018-08-12] MEDS: TETRACAINE HCL 0.5% OPH SOLN 0.6 ML DROPERETTE OD PRN ×2 (09:36→10:00)
[2018-08-12] MEDS ORDERED: MIDAZOLAM 2 MG/2 ML INJ ONE (09:57)
[2018-08-12] MEDS: DORZOLAMIDE HCL 2%/TIMOLOL MALEAT 0.5% OPH SOLN 10 ML OD PRN ×2 (11:00)
--- NOTE | 2018-08-12 11:59 | [facility] OPERATIVE REPORT E ---
[facility] Operative Report NAME: MARIAA OH AGE: 52Y DATE OF SURGERY: 08/12/2018 ROOM: PREOPERATIVE DIAGNOSIS: MATURE CATARACT, RIGHT EYE. POSTOPERATIVE DIAGNOSIS: MATURE CATARACT, RIGHT EYE. PROCEDURE PERFORMED: COMPLEX CATARACT EXTRACTION WITH INTRAOCULAR LENS, RIGHT EYE. SURGEON: LETY TSAI MD ANESTHESIA: TOPICAL WITH MAC PLUS INTRAOCULAR LIDOCAINE. INDICATIONS FOR SURGERY: No view of fundus, poor depth perception, light perception, vision, mature cataract. Indications were complex. No red reflex, requiring the use of Trypan blue dye. PROCEDURE: The patient was brought to the Operating Room and placed on the operative table. Following tetracaine drops, topical anesthesia was administered. This consisted of instrument wipe pledgets soaked in a solution of 4% Xylocaine mixed with 0.75% Marcaine in a 1:2 ratio. A 2 x 1 cm pledget was placed in the superior fornix. A 1 x 1 cm pledget was placed in the inferior fornix. The eye was patched shut for 5 minutes. The patch was removed. The eye was sterilely prepped and draped in the usual manner. Lid speculum was placed in the eye. The pledgets were removed. 4-0 black silk sutures were placed around the superior and the inferior rectus muscles to be used as traction. A conjunctival peritomy was made at the 10 o'clock position. Hemostasis was obtained with bipolar cautery. A posterior limbal groove was created using a crescent knife and dissected anteriorly towards the cornea. A sharp point blade was used to create a paracentesis site at the 2 o'clock position. A 2.4 mm keratome was used to enter the anterior chamber through the groove. a syringe with air was placed through the side port incision and aqueous was exchanged with air. Trypan blue dye was injected inferior to the air bubble. Viscoelastic was injected into the anterior chamber. An anterior capsulotomy was performed using Utrata forceps in a capsulorrhexis fashion. Hydrodissection and hydrodelineation were performed. Phacoemulsification was performed in sorapn-[id number]-[id number] technique. A total of 12.45 CDE phaco time was used. Following this, the I/A unit was used to remove residual cortex. Viscoelastic was injected into the capsular bag. Intraocular lens model SN60WF, 21.5 diopters, serial number [id number] was placed in the capsular bag. The I/A unit was used to remove residual viscoelastic. The wound was seen to be watertight under high and low pressure, and no sutures were placed. The intraocular lens was well centered. The pressure was adjusted in the eye to normal pressure. The 4-0 black silk sutures and lid speculum were removed. The eye was shielded after Besivance and cosopt drops were placed. The patient tolerated the procedure well and was sent to the Recovery Room in good condition. DICTATING PHYSICIAN: LETY TSAI M.D. DICTATING PHYSICIAN: LETY TSAI M.D. [id number] PHY#: [id number] ID: [id number] JOB#: [id number] ACCT: [id number] cc:LETY TSAI M.D. > MTDD
--- NOTE | 2018-08-12 12:00 | [facility] DISCHARGE SUMMARY E ---
[facility] Discharge Summary NAME: MARIAA OH AGE: 52Y ADMITTED: 08/12/2018 DISCHARGED: 08/12/2018 FINAL DIAGNOSIS: CATARACT, RIGHT EYE HOSPITAL COURSE: The patient is a 52-year-old gentleman who underwent uneventful complex cataract extraction with intraocular lens implant, right eye on 08/12/18. He will be discharged to home. He is instructed to resume preoperative medications, take Tylenol as needed for discomfort, to keep his eye shielded, to use Besivance, Durezol and PROLENSA at 3 p.m. and 8 p.m., and to follow up in my office in 1 day. DICTATING PHYSICIAN: LETY TSAI M.D. [id number] PHY#: [id number] ID: [id number] JOB#: [id number] ACCT: [id number] cc:LETY TSAI M.D. >
== END 2018-08-12 11:45 | disposition home or self-care (01) ==
LOC: SC 08:40
PROVIDERS: ATTEND Ophthalmology
DX: H25.21 Age-related cataract, morgagnian type, right eye (principal); I10 Essential (primary) hypertension; F17.210 Nicotine dependence, cigarettes, uncomplicated; Z79.899 Other long term (current) drug therapy; J45.909 Unspecified asthma, uncomplicated; Z79.51 Long term (current) use of inhaled steroids
CPT/HCPCS: 66982; 00142; V2632; J2250; J3490 ×4; J0171; J2370; 142

== ENCOUNTER 2019-03-27 06:41 | Emergency (ER) | payer BC ==
[2019-03-27 06:52] VITALS: BP 129/82
[2019-03-27] MEDS ORDERED: CEPHALEXIN 500 MG CAPSULE PO ONE (08:33)
[2019-03-27] MEDS ORDERED: LIDOCAINE 1.5% INJ-MPF (15 MG/ML) 20 ML AMPUL INJ ONE (08:33)
[2019-03-27] MEDS ORDERED: DIPH/PERTUSS(ACELL)/TETANUS VAC/PF 0.5 ML SYR (>=10YO) IM ONE (08:33)
[2019-03-27] MEDS ORDERED: HYDROCODONE/ACETAMINOPHEN 10-325 MG TABLET PO ONE (08:33)
[2019-03-27] MEDS ORDERED: LIDOCAINE 1% INJ-PF (10 MG/ML) 30 ML SDV INJ ONE (08:35)
--- NOTE | 2019-03-27 08:36 | RADIOLOGY REPORT (SQ) ---
EXAM DESCRIPTION: KNEE LEFT 4 VIEW COMPLETED DATE/TIME: 03/27/2019 7:46 am REASON FOR STUDY: knee injury COMPARISON: None. NUMBER OF VIEWS: Four views. TECHNIQUE: AP, lateral, and both oblique radiographic images acquired of the left knee. LIMITATIONS: None. FINDINGS: MINERALIZATION: Normal. BONES: No acute fracture or dislocation. No worrisome bone lesions. JOINT: Small joint effusion. SOFT TISSUES: Prepatellar soft tissue swelling and laceration. No radiopaque foreign body. OTHER: No other significant finding. IMPRESSION: No acute bony abnormality. Prepatellar soft tissue swelling and laceration. No radiopaque foreign body. TECHNICAL DOCUMENTATION: JOB ID: [id number] [employer]- All Rights Reserved Reading location - IP/workstation name: [email or web address]
--- NOTE | 2019-03-27 08:39 | ER Document Report ---
ED General - General Chief Complaint: Laceration Stated Complaint: KNEE SWOLLEN Time Seen by Provider: 03/27/19 08:26 Primary Care Provider: ELIUD BHAGAT MD [Primary Care Provider] - Follow up as needed Notes: Patient is a 53-year-old white male with a past medical history of COPD who presents to the emergency department with a chief complaint of left knee injury that occurred last night around 1 AM. The patient states that he was drinking and was walking in a dark area, tripped over a fire pit and fell landing on both knees. States the left knee struck the concrete. He states he wrapped the knee up and went about his business. States upon waking this morning his roommate woke him up and advised to come to the ER, and brought him here. He is unsure of his last tetanus immunization. He complains of significant pain in the left knee soft tissues. Denies any uncontrolled bleeding. Denies any numbness tingling or weakness. TRAVEL OUTSIDE OF THE [place] IN LAST 30 DAYS: No - Related Data Allergies/Adverse Reactions: No Known Allergies Allergy (Verified 07/28/17 11:03) Past Medical History - Social History Smoking Status: Current Every Day Smoker Frequency of alcohol use: Heavy Drug Abuse: Marijuana Family History: Reviewed & Not Pertinent Patient has suicidal ideation: No Patient has homicidal ideation: No - Past Medical History Cardiac Medical History: Reports: Hx Hypertension - MEDS Denies: Hx Heart Attack Pulmonary Medical History: Reports: Hx COPD Denies: Hx Asthma Neurological Medical History: Denies: Hx Cerebrovascular Accident, Hx Seizures Renal/ Medical History: Denies: Hx Peritoneal Dialysis GI Medical History: Denies: Hx Hepatitis, Hx Hiatal Hernia, Hx Ulcer Infectious Medical History: Denies: Hx Hepatitis Past Surgical History: Reports: Hx Orthopedic Surgery - r clavicle x2, left clavicle x1. Denies: Hx Open Heart Surgery, Hx Pacemaker Review of Systems - Review of Systems Musculoskeletal: Joint pain Skin: Other - Laceration -: Yes All other systems reviewed and negative Physical Exam - Vital signs Vitals: Temp Pulse Resp BP Pulse Ox 97.5 F 85 22 H 129/82 H 96 03/27/19 06:47 03/27/19 06:47 03/27/19 06:47 03/27/19 06:47 03/27/19 06:47 - General General appearance: Appears well, Alert In distress: None - Respiratory Respiratory status: No respiratory distress Chest status: Nontender Breath sounds: Normal Chest palpation: Normal - Cardiovascular Rhythm: Regular Heart sounds: Normal auscultation - Extremities General lower extremity: Other - Limited range of motion of the left knee secondary to patient's cooperation and pain. He does have full extension appreciated. 2+ DP/PT on the left. Gait slightly limited by pain. No ligamentous laxity. - Neurological Neuro grossly intact: Yes Cognition: Normal Orientation: AAOx4 Rosie Coma Scale Eye Opening: Spontaneous [place] Coma Scale Verbal: Oriented [place] Coma Scale Motor: Obeys Commands [place] Coma Scale Total: 15 Speech: Normal Motor strength normal: LLE - Psychological Associated symptoms: Normal affect, Normal mood - Skin Location of irregularity: Other - 5 cm laceration horizontal to the left anterior knee, gaping but approximates. Appears possibly contaminated. Hemostasis maintained. Course - Re-evaluation Re-evalutation: 03/27/19 11:05 X-ray negative for acute process per radiologist. Patient tolerated wound closure well. He will be given a short course of [place], placed on Keflex. His tetanus was updated. He was encouraged to follow-up outpatient for wound check in 2 to 3 days. Suture removal in approximately 14 days. Referred to orthopedics as well. Counseled him at length regarding the importance of outpatient follow-up and advised that he return here or any ER immediately with any new, persistent or worsening symptoms. He verbalized understood and agreed. - Vital Signs Vital signs: Temp Pulse Resp BP Pulse Ox 97.5 F 85 22 H 129/82 H 96 03/27/19 06:47 03/27/19 06:47 03/27/19 06:47 03/27/19 06:47 03/27/19 06:47 Procedures - Laceration/Wound Repair Left Knee Time completed: 11:04 Wound length (cm): 5 Wound's Depth, Shape: Into muscle, Linear Laceration pre-procedure: Sterile PPE donned, Betadine prep applied, Sterile drapes applied Anesthetic type: 1% Lidocaine Volume Anesthetic (mLs): 10 Wound explored: No foreign body removed Irrigated w/ Saline (mLs): 500 Wound Debrided: Minimal Wound Repaired With: Sutures Suture Size/Type: 3:0, Prolene Number of Sutures: 10 Layer Closure?: No Post-procedure wound care: Sterile dressing applied, Splint applied Post-procedure NV exam normal: Yes Complications: No Discharge - Discharge Clinical Impression: Knee laceration Qualifiers: Encounter type: initial encounter Laterality: left Qualified Code(s): S81.012A - Laceration without foreign body, left knee, initial encounter Condition: Stable Disposition: HOME, SELF-CARE Instructions: Knee Immobilizing Splint ([facility]), Laceration Care ([facility]) Additional Instructions: Follow-up with your regular doctor in 2 to 3 days for reevaluation. Return here or any ER immediately with any new, persistent or worsening symptoms. Prescriptions: Cephalexin Monohydrate [Keflex 500 mg Capsule] 500 mg PO Q6H 10 Days #40 capsule Hydrocodone/Acetaminophen [[place] 5-325 mg Tablet] 1 tab PO Q6 #12 tablet Referrals: ELIUD BHAGAT MD [Primary Care Provider] - Follow up as needed
== END 2019-03-27 11:41 | disposition home or self-care (01) ==
LOC: ER 06:41
DX: S81.012A Laceration without foreign body, left knee, initial encounter (principal); W01.0XXA Fall on same level from slipping, tripping and stumbling without subsequent striking against object, initial encounter; Z23 Encounter for immunization; F17.200 Nicotine dependence, unspecified, uncomplicated; I10 Essential (primary) hypertension
CPT/HCPCS: 73564; 90715; 12002; J3490 ×2; 90471; 99283